=== PATIENT | male | born 1985 | race Caucasian/White ===

== ENCOUNTER 2023-03-21 17:46 | Emergency (ER) | payer BC ==
[2023-03-21] MEDS: Lidocaine 1% 5 ML VIAL INJECT ONE (17:59)
[2023-03-21] MEDS: Bacitracin/Neomycin/Polymyxin B Oint 0.9 GM U/D Packet TOP ONE (18:05)
== END 2023-03-21 18:08 | disposition home or self-care (01) ==
LOC: CC.ED 17:46
DX: S60.352A Superficial foreign body of left thumb, initial encounter (principal); W45.8XXA Other foreign body or object entering through skin, initial encounter
CPT/HCPCS: 99282; 99283; A9270-GY; J3490